=== PATIENT | male | born 1960 | race Caucasian/White ===

== ENCOUNTER 2019-02-06 22:25 | Observation (INO) | payer OTHER ==
[2019-02-07] MEDS ORDERED: ONDANSETRON 4 MG INJ IV (01:00)
[2019-02-07] MEDS ORDERED: ACETAMINOPHEN 325 MG TAB PO (01:00)
[2019-02-07] MEDS ORDERED: NACL 0.9% 3 ML SYG IV (01:00)
[2019-02-07] MEDS ORDERED: ALBUTEROL/IPRATROPIUM (NEB) 3 ML AMP HHN (01:00)
[2019-02-07 01:57] LABS: CREATINE KINASE 38 IU/L (23-200)
[2019-02-07 03:15] LABS: CK INDEX 1.1; TROPONIN-I < 0.012 ng/ml (0.000-0.120)
[2019-02-07] MEDS ORDERED: CALCIUM CARBONATE 500 MG CHEW TAB PO (04:00)
[2019-02-07] MEDS: PANTOPRAZOLE (EC) 40 MG TAB PO (05:55)
[2019-02-07] MEDS: LIDOCAINE/MYLANTA 40 ML BTL PO (05:56)
[2019-02-07 07:02] LABS: ADD MAN DIFF? NO
[2019-02-07 07:09] LABS: BASOPHIL # 0.1 10^3/ul (0.0-0.1); BASOPHILS % 0.6 % (0.0-2.0); EOSINOPHILS # 0.3 10^3/ul (0.0-0.5); HEMATOCRIT 47.7 % (42.0-52.0); HEMOGLOBIN 16.1 g/dl (14.0-18.0); LYMPHOCYTES # 2.7 10^3/ul (0.8-2.9); LYMPHOCYTES % 33.8 % (15.0-51.0); MEAN CORPUSCULAR HGB CONC 33.8 g/dl (32.0-37.0); MEAN CORPUSCULAR VOLUME 88.8 fl (82.0-101.0); MEAN PLATELET VOLUME 10.6 fl (7.4-10.4); MONOCYTE # 0.8 10^3/ul (0.3-0.9); MONOCYTES % 9.4 % (0.0-11.0); NEUTROPHIL # 4.2 10^3/ul (1.6-7.5); NEUTROPHILS % 51.7 % (39.0-77.0); PLATELET COUNT 202 10^3/UL (140-415); RED BLOOD COUNT 5.37 10^6/ul (4.70-6.10); RED CELL DISTRIBUTION WIDTH 12.9 % (11.5-14.5)
[2019-02-07 07:09] LABS: WHITE BLOOD COUNT 8.1 10^3/ul (4.8-10.8)
[2019-02-07 07:24] LABS: CREATINE KINASE 30 IU/L (23-200)
[2019-02-07 07:25] LABS: ALANINE AMINOTRANSFERASE 41 IU/L (13-69); ALBUMIN 4.2 g/dl (3.3-4.9); ALBUMIN/GLOBULIN RATIO 1.31; ALKALINE PHOSPHATASE 59 IU/L (42-121); ANION GAP 13 (5-13); ASPARTATE AMINO TRANSFERASE 27 IU/L (15-46); BILIRUBIN,INDIRECT 0.7 mg/dl (0-1.1); BILIRUBIN,TOTAL 0.7 mg/dl (0.2-1.3); BLOOD UREA NITROGEN 11 mg/dl (7-20); CALCIUM 9.5 mg/dl (8.4-10.2); CARBON DIOXIDE 23 mmol/L (21-31); CHLORIDE 105 mmol/L (97-110); CHOL/HDL RATIO 5.7 RATIO; CHOLESTEROL 137 mg/dl (100-200); CREATININE 0.76 mg/dl (0.61-1.24); Estimated GFR > 60 mL/min (>60); GLUCOSE 114 mg/dl (70-220); HDL CHOLESTEROL 24 mg/dl (28-71); LDL CHOLESTEROL,CALCULATED 89 mg/dl; POTASSIUM 3.9 mmol/L (3.5-5.1); SODIUM 141 mmol/L (135-144); TOTAL PROTEIN 7.4 g/dl (6.1-8.1); TRIGLYCERIDES 118 mg/dl (0-149)
[2019-02-07 07:36] LABS: CK INDEX 1.2; CK-MB 0.36 ng/ml (0.0-2.4); TROPONIN-I < 0.012 ng/ml (0.000-0.120)
[2019-02-07 08:00] LABS: HEMOGLOBIN A1C 5.6 % (0-5.9)
[2019-02-07] MEDS: GEMFIBROZIL 600 MG TAB PO ×2 (08:40→20:44)
[2019-02-07] MEDS: ASPIRIN (EC) 81 MG TAB PO (08:40)
[2019-02-07] MEDS: CLOPIDOGREL 75 MG TAB PO (08:41)
[2019-02-07] MEDS: METOPROLOL 50 MG TAB PO ×2 (08:41→20:44)
[2019-02-07] MEDS: LOSARTAN 50 MG TAB PO (08:41)
[2019-02-07] MEDS: traMADol 50 MG TAB PO ×2 (08:42→20:43)
[2019-02-07] MEDS: NITROGLYCERIN (SL) 0.4 MG TAB SL (18:13)
[2019-02-07] MEDS: ATORVASTATIN 40 MG TAB PO (20:44)
[2019-02-07] MEDS: RANOLAZINE (SR) 500 MG TAB PO (20:44)
[2019-02-07] MEDS ORDERED: ATORVASTATIN 20 MG TAB PO (21:00)
[2019-02-08] MEDS: PANTOPRAZOLE (EC) 40 MG TAB PO (05:43)
[2019-02-08 07:00] LABS: ADD MAN DIFF? NO
[2019-02-08 07:03] LABS: BASOPHIL # 0.1 10^3/ul (0.0-0.1); BASOPHILS % 0.9 % (0.0-2.0); EOSINOPHILS # 0.4 10^3/ul (0.0-0.5); EOSINOPHILS % 5.3 % (0.0-7.0); HEMATOCRIT 49.8 % (42.0-52.0); HEMOGLOBIN 16.7 g/dl (14.0-18.0); LYMPHOCYTES # 3.7 10^3/ul (0.8-2.9); LYMPHOCYTES % 45.9 % (15.0-51.0); MEAN CORPUSCULAR HGB CONC 33.5 g/dl (32.0-37.0); MEAN CORPUSCULAR VOLUME 89.6 fl (82.0-101.0); MEAN PLATELET VOLUME 10.6 fl (7.4-10.4); MONOCYTE # 0.9 10^3/ul (0.3-0.9); MONOCYTES % 10.6 % (0.0-11.0); NEUTROPHILS % 36.8 % (39.0-77.0); PLATELET COUNT 200 10^3/UL (140-415); RED BLOOD COUNT 5.56 10^6/ul (4.70-6.10)
[2019-02-08 07:27] LABS: ANION GAP 11 (5-13); BLOOD UREA NITROGEN 16 mg/dl (7-20); CALCIUM 9.6 mg/dl (8.4-10.2); CARBON DIOXIDE 26 mmol/L (21-31); CHLORIDE 103 mmol/L (97-110); CREATININE 0.79 mg/dl (0.61-1.24); Estimated GFR > 60 mL/min (>60); GLUCOSE 100 mg/dl (70-220); MAGNESIUM 2.1 mg/dl (1.7-2.5); POTASSIUM 4.3 mmol/L (3.5-5.1); SODIUM 140 mmol/L (135-144)
[2019-02-08] MEDS: RANOLAZINE (SR) 500 MG TAB PO (09:00)
[2019-02-08] MEDS: traMADol 50 MG TAB PO (09:00)
[2019-02-08] MEDS: LOSARTAN 25 MG TAB PO (09:00)
[2019-02-08] MEDS: METOPROLOL 50 MG TAB PO (09:00)
[2019-02-08] MEDS: AMIODARONE 200 MG TAB PO (09:00)
[2019-02-08] MEDS: CLOPIDOGREL 75 MG TAB PO (09:32)
[2019-02-08] MEDS: ASPIRIN (EC) 81 MG TAB PO (09:33)
[2019-02-08] MEDS: GEMFIBROZIL 600 MG TAB PO (09:33)
[2019-02-08] MEDS ORDERED: METOPROLOL 50 MG TAB PO (21:00)
[2019-02-09] MEDS ORDERED: LOSARTAN 25 MG TAB PO (09:00)
== END 2019-02-08 16:53 | disposition home or self-care (01) ==
LOC: TEL 22:25
DX: I25.119 Atherosclerotic heart disease of native coronary artery with unspecified angina pectoris (principal); Z95.1 Presence of aortocoronary bypass graft; Z95.5 Presence of coronary angioplasty implant and graft; E78.5 Hyperlipidemia, unspecified; I10 Essential (primary) hypertension; Z95.810 Presence of automatic (implantable) cardiac defibrillator; Z86.74 Personal history of sudden cardiac arrest; Z87.891 Personal history of nicotine dependence
CPT/HCPCS: 74176; 80048; 80053; 80061; 82550; 82553; 83036; 83735; 84100; 84443; 84484; 85025; 93005; 93306; 93880; 99217; G0378